=== PATIENT | male | born 1995 | race Caucasian/White ===

== ENCOUNTER 2016-12-18 12:05 | Inpatient (IN) | payer MEDICAID ==
[~2016-12-18] VITALS: Ht 165.1 cm; Wt 60.4 kg
[2016-12-18] MEDS ORDERED: IV NS 1000 ML 1,000 ML IV ONE (12:30)
--- NOTE | 2016-12-18 12:35 | NUR ---
PT TO CT SCAN, MONITOR SHOWED NSR, PO2=96% ON ROOM AIR.
--- NOTE | 2016-12-18 13:02 | NUR ---
URINE SENT, IV PLACED, 1L 0.9NS INFUSING. PT A/O X 4, MONITOR SHOWS NSR/LL7=600% ON ROOMAIR.
[2016-12-18 13:09] LABS: CALCIUM 9.8 mg/dL (8.5-10.1); CREATININE 1.3 mg/dL (0.6-1.3); POTASSIUM 4.1 mmol/L (3.5-5.1)
[2016-12-18 13:11] LABS: BASOPHILS # (AUTO) 0.2 K/uL (0.0-0.2); BASOPHILS % (AUTO) 1.5 % (0.0-2.0); EOSINOPHILS # (AUTO) 0.2 K/uL (0.0-0.7); EOSINOPHILS % (AUTO) 1.3 % (0.0-7.0); HEMATOCRIT 46.2 % (40.0-50.0); HEMOGLOBIN 15.5 g/dL (14.0-18.0); LYMPHOCYTES # (AUTO) 3.1 K/uL (0.8-4.8); LYMPHOCYTES % (AUTO) 26.7 % (20.5-51.5); MEAN CORPUSCULAR HGB CONC 34 g/dL (32.0-37.0); MEAN CORPUSCULAR VOLUME 89.4 fL (82.0-92.0); MONOCYTES # (AUTO) 0.8 K/uL (0.1-1.30); MONOCYTES % (AUTO) 6.5 % (0.0-11.0); NEUTROPHILS # (AUTO) 7.4 K/uL (1.8-8.9); PLATELET COUNT (AUTO) 266 K/uL (150-450); RED BLOOD CELL COUNT(AUTO) 5.17 MIL/uL (4.70-6.10); RED CELL DISTRIBUTION WIDTH 12.7 % (11.5-14.5); WHITE BLOOD COUNT (AUTO) 11.7 K/uL (4.0-11.2)
[2016-12-18 13:14] LABS: ALBUMIN 4.8 g/dL (3.4-5.0); BILIRUBIN,TOTAL 0.6 mg/dL (0.2-1.0); TOTAL PROTEIN, SERUM 8.4 g/dL (6.4-8.2)
[2016-12-18 13:17] LABS: *BILIRUBIN,URIN NEGATIVE (NEGATIVE); *BLOOD, URINE 2+ (NEGATIVE); *CLARITY,URINE CLEAR (CLEAR); *COLOR,URINE YELLOW (YELLOW); *KETONES,URINE TRACE (NEGATIVE); *PROTEIN,URINE 2+ (NEGATIVE); *UROBILINOGEN,URINE 0.2 E.U./dl (NORMAL); LEUKOCYTE ESTERASE ,URINE NEGATIVE (NEGATIVE); NITRITE, URINE NEGATIVE (NEGATIVE); PH,URINE 5.5 (5.0-8.0); UGLUCOSE NEGATIVE (NEGATIVE)
[2016-12-18 13:28] LABS: *AMPHETAMINE, URINE NEGATIVE (NEGATIVE); *BARBITURATE, URINE NEGATIVE (NEGATIVE); *CANNABINOID, URINE POSITIVE (NEGATIVE); *COCCAINE, URINE NEGATIVE (NEGATIVE); *OPIATE, URINE NEGATIVE (NEGATIVE); *PHENCYCLIDINE SCREEN,URINE NEGATIVE (NEGATIVE)
[2016-12-18 13:34] LABS: BACTERIA,URINE FEW /HPF (NONE SEEN); RBC,URINE 0-3 /HPF (0-3); SQUAMOUS EPITHELIAL CELL,UR FEW /HPF (NONE SEEN); WBC,URINE 0-3 /HPF (0-3)
--- NOTE | 2016-12-18 15:13 | NUR ---
SBAR REPORT TO SALVATORE FRASER, ADMIT ORDER WRITTEN, BELONGINGS LIST DONE.
[2016-12-18 15:48] VITALS: BP 128/76
[2016-12-18] MEDS ORDERED: ONDANSETRON 4 MG/2 ML VIAL IV PRN (16:30)
[2016-12-18] MEDS ORDERED: HYDROCODONE/APAP 5-325MG TABLET PO PRN (16:30)
[2016-12-18] MEDS ORDERED: MAGNESIUM HYDROXIDE 30 ML LIQUID UDC PO PRN (16:30)
[2016-12-18] MEDS ORDERED: ACETAMINOPHEN 325 MG TABLET PO PRN (16:30)
--- NOTE | 2016-12-18 16:45 | NUR ---
NEW ADMISSION ARRIVED TO ROOM 204. PATIENT AAOX4 IN NO ACUTE DISTRESS. C/O SORENESS TO BACK OF NECK. ICE PACK PROVIDED.
--- NOTE | 2016-12-18 17:00 | NUR ---
ADMISSION ORDERS OBTAINED FROM DR. CALHOUN.
--- NOTE | 2016-12-18 18:50 | NUR ---
END OF SHIFT NOTE: PATIENT IN NO ACUTE DISTRESS THROUGHOUT SHIFT. PAIN MANAGED WITH MEDICATION PRESCRIBED. NO SEIZURES OBSERVED. SR ON TELEMONITOR. NEEDS MET BY STAFF. SAFETY PRECAUTIONS IN PLACE.
[2016-12-18 19:00] VITALS: BP 118/79
[2016-12-18] MEDS ORDERED: LORAZEPAM 2 MG/1 ML VIAL IV PRN (20:00)
[2016-12-18] MEDS: LEVETIRACETAM 500 MG TABLET PO SCH (20:08)
[2016-12-19 00:22] VITALS: BP 121/79
[2016-12-19 04:00] VITALS: BP 123/60
--- NOTE | 2016-12-19 05:15 | NUR ---
Patient slept well, no acute distress noted. Seizure precaution in placed, no signs and symptoms of seizures observed. Will continue to monitor. Call light within reach, bed in low position. Addendum: 12/19/16 at 0542 by DULCE MARIA LANDA RN No observed noted while lights are on but patient stated he has slight light sensitivity, lights dimmed for comfort.
[2016-12-19] MEDS ORDERED: PANTOPRAZOLE SODIUM 40 MG TABLET.DR PO SCH (07:00)
[2016-12-19 07:10] LABS: HEMOGLOBIN 15.3 g/dL (14.0-18.0); RED BLOOD CELL COUNT(AUTO) 5.02 MIL/uL (4.70-6.10)
[2016-12-19 07:11] LABS: BASOPHILS # (AUTO) 0.1 K/uL (0.0-0.2); BASOPHILS % (AUTO) 1.4 % (0.0-2.0); EOSINOPHILS # (AUTO) 0.1 K/uL (0.0-0.7); EOSINOPHILS % (AUTO) 1.5 % (0.0-7.0); HEMATOCRIT 45.4 % (40.0-50.0); LYMPHOCYTES # (AUTO) 2.8 K/uL (0.8-4.8); LYMPHOCYTES % (AUTO) 31.3 % (20.5-51.5); MEAN CORPUSCULAR HEMOGLOBIN 30.4 uug (27.0-31.0); MEAN CORPUSCULAR HGB CONC 34 g/dL (32.0-37.0); MEAN CORPUSCULAR VOLUME 90.3 fL (82.0-92.0); MONOCYTES # (AUTO) 0.7 K/uL (0.1-1.30); MONOCYTES % (AUTO) 7.7 % (0.0-11.0); NEUTROPHILS # (AUTO) 5.3 K/uL (1.8-8.9); NEUTROPHILS % (AUTO) 58.1 % (38.5-71.5); PLATELET COUNT (AUTO) 262 K/uL (150-450); RED CELL DISTRIBUTION WIDTH 12.7 % (11.5-14.5)
[2016-12-19 07:30] LABS: ALBUMIN 4.5 g/dL (3.4-5.0); BILIRUBIN,TOTAL 0.8 mg/dL (0.2-1.0); CALCIUM 9.5 mg/dL (8.5-10.1); CREATININE 0.9 mg/dL (0.6-1.3); MAGNESIUM 2.2 mg/dL (1.8-2.4); PHOSPHOROUS 4.1 mg/dL (2.5-4.9); POTASSIUM 3.6 mmol/L (3.5-5.1); TOTAL PROTEIN, SERUM 8.3 g/dL (6.4-8.2)
[2016-12-19 07:36] LABS: THYROID STIMULATING HORMONE 3.214 mIU/mL (0.358-3.740)
--- NOTE | 2016-12-19 08:00 | NUR ---
awake alert and oriented, denies of pain, denies of dizziness/seizures activity, all rails padded as seizure precautions, explained plan if care- verbalized understanding, Tele SR 60's, call lite within reach. Safety measures maintained
[2016-12-19] MEDS: LEVETIRACETAM 500 MG TABLET PO SCH (08:15)
[2016-12-19] MEDS ORDERED: IV NORMAL SALINE 250 ML IV ONE (11:19)
[2016-12-19] MEDS ORDERED: IOHEXOL 300MG/ML 100 ML INFUS..BTL ONE (11:19)
--- NOTE | 2016-12-19 11:20 | NUR ---
To CT scan per w/c, family at bedside
[2016-12-19 11:23] VITALS: BP 119/70
[2016-12-19] MEDS ORDERED: LEVE500T9 PO (11:44)
[2016-12-19] MEDS ORDERED: ATOR20TA PO (11:44)
--- NOTE | 2016-12-19 11:45 | NUR ---
to be d/c today after EEG, pt aware and in agreement, no seizures noted, family here
--- NOTE | 2016-12-19 13:30 | NUR ---
EEG being done in the room
--- NOTE | 2016-12-19 14:30 | NUR ---
discharge instructions given by RN and medication instructions (prescription) by pharmacist- verbalized understanding, saline lock removed- no swelling/redness noted on site
--- NOTE | 2016-12-19 14:45 | NUR ---
escorted to car per w/c in stable condition under family's care. All belongings with him
[2016-12-19] MEDS ORDERED: ATORVASTATIN 20 MG TABLET PO SCH (21:00)
== END 2016-12-19 14:55 | disposition home or self-care (01) | DRG 53 ==
LOC: ER 12:08 → TELE 15:30
PROVIDERS: ADMIT Internal Medicine; ATTEND Internal Medicine
DX: R56.9 Unspecified convulsions (principal); F32.9 Major depressive disorder, single episode, unspecified; E78.5 Hyperlipidemia, unspecified; D72.828 Other elevated white blood cell count; Z63.9 Problem related to primary support group, unspecified; Z87.898 Personal history of other specified conditions
CPT/HCPCS: 36415; 70450; 70470; 80307; 83735; 84100; 84443; 85025; A4663; J7030; J7050; Q9967